=== PATIENT | female | born 1955 | race Caucasian/White ===

== ENCOUNTER 2017-06-25 14:17 | Observation (INO) ==
[2017-06-25] MEDS ORDERED: 0.9 % Sodium Chloride 1,000 ML IVC ONE ×2 (15:29→16:42)
[2017-06-25] MEDS ORDERED: Ondansetron 4 MG/2 ML VIAL IVP ONE (15:29)
--- NOTE | 2017-06-25 15:32 | Emergency Department Note ---
Disposition Clinical Impression: Hyperglycemia, Dehydration Urinary tract infection Qualifiers: Urinary tract infection type: site unspecified Hematuria presence: with hematuria Qualified Code(s): N39.0 - Urinary tract infection, site not specified ; R31.9 - Hematuria, unspecified; R31.9 - Hematuria, unspecified Disposition: Admitted As Inpatient Condition: Fair Referrals: Elizabeth Bray BAND SHOVER [Primary Care Provider] - Forms: ED Satisfaction Letter, Work/School Release General Adult HPI - General Chief complaint: ED General Medical Stated complaint: high blood sugar Time Seen by Provider: 06/25/17 15:14 Source: patient Mode of arrival: private vehicle Limitations: no limitations Nursing Notes Reviewed: Yes Vital Signs Reviewed: Yes - History of Present Illness HPI Narrative: 62-year-old female presents for evaluation of feeling ill. Patient states that over the last week her blood sugars have been running high and she has some mild throbbing of her head associated with nausea vomiting 3 and dizziness. She has also had associated urinary frequency. Patient normally controls her blood sugar with metformin and glyburide. She denies any chest pain but is felt like her heart has been fluttering. She states no shortness of breath. She denies abdominal pain. It has no rashes to her skin. Pain Scale: 4 - Related Data Home Medications Medication Instructions Recorded Confirmed Buspirone HCl [Buspar] 5 mg PO TID 12/20/16 06/25/17 DULoxetine [Cymbalta] 20 mg PO DAILY 12/20/16 06/25/17 HydrOXYzine Pamoate [Vistaril] 50 mg PO Q6H 12/20/16 06/25/17 glyBURIDE [GlyBURIDE] 2.5 mg PO 0800 12/20/16 06/25/17 metFORMIN [Glucophage] 500 mg PO BIDWM 12/20/16 06/25/17 traZODone [TraZODone] 50 mg PO BID 12/20/16 06/25/17 Previous Rx's Medication Instructions Recorded Meclizine HCl [Verticalm] 25 mg PO QID #12 tablet 12/20/16 Allergies Allergy/AdvReac Type Severity Reaction Status Date / Time acetaminophen Allergy See Verified 06/25/17 14:54 [From Jhon] Comments influenza virus vaccine, Allergy See Verified 06/25/17 14:54 specific Comments propoxyphene Allergy See Verified 06/25/17 14:54 [From HelenMalka] Comments Review of Systems: Constitutional: [Negative for fever and chills.] HENT: [Negative for congestion.] Eyes: [Negative for discharge.] Respiratory: [Negative for shortness of breath.] Cardiovascular: [Negative for chest pain.] Gastrointestinal: See history of present illness Endocrine: [Negative for excessive thirst,urination] Genitourinary: [Negative for dysuria and frequency.] Musculoskeletal: [Negative for myalgias and arthralgias.] Skin: [Negative for rash.] Neurological: See history of present illness Psychiatric/Behavioral: [Negative for nervous/anxious.] All other systems reviewed and are negative. Past Medical History - Past Medical History Attestation: Yes The following information was validated with the patient. Source: patient Medical history: Reports: diabetes, hypertension Psychiatric history: Reports: anxiety, depression, panic disorder - Social History Smoking Status: Never smoker Smokeless Tobacco Status: No Alcohol use: Reports: none Drug use: Reports: none Physical Exam Constitutional: Patient is [alert], [healthy,and comfortable] and cooperative. . The patient appears [asymptomatic], [nontoxic, and does not appear ill]. HENT: Head: Normocephalic and atraumatic. Right Ear: External ear normal. Left Ear: External ear normal. Nose: Nose normal. Mouth/Throat: Oropharynx is clear and mucous membranes show mild dehydration Eyes: Conjunctivae and EOM are normal. Pupils are equal, round, and reactive to light. Right eye exhibits [no] discharge. Left eye exhibits [no] discharge. Neck: Trachea is midline, normal range of motion and [phonation normal]. Neck supple. Cardiovascular: [Regular rhythm], S1 normal, S2 normal, normal heart sounds and intact distal pulses. Exam reveals no gallop and no friction rub. No murmur heard. [Capillary refill is brisk.] [Peripheral pulses are 2+] Pulmonary/Chest: Effort [normal] No stridor. [No] tachypnea. [No] respiratory distress. There are [no] decreased breath sounds. [There no wheezes, no rhonchi , or rales.] Abdominal: Soft. [Bowel sounds are normal]. There exhibits [no] distension and [no] mass. There is no hepatosplenomegaly. There is [no tenderness], [no] CVA tenderness. There is [no rigidity, no rebound, no guarding]. Musculoskeletal: Normal range of motion of uninvolved extremities. There exhibits [no edema]. [ ] Neurological: Patient is alert. Patient displays no atrophy and no tremor. No cranial nerve deficit and exhibits normal muscle tone. Coordination normal grossly. Skin: Skin is warm and dry. No erythema. No rash noted. Psychiatric: Patient has a normal mood and affect. Course Course Narrative: Patient was discussed with Dr. Root, hospitalist, who will accept admission. Vital Signs Temperature 97.2 F L 06/25/17 14:47 Pulse Rate 122 06/25/17 14:47 Respiratory Rate 16 06/25/17 14:47 Blood Pressure 131/63 06/25/17 14:47 O2 Sat by Pulse Oximetry 97 06/25/17 14:47 Temperature 97.2 F L 06/25/17 14:47 Pulse Rate 122 06/25/17 14:47 Respiratory Rate 16 06/25/17 14:47 Blood Pressure 131/63 06/25/17 14:47 O2 Sat by Pulse Oximetry 97 06/25/17 14:47 Oxygen Delivery Oxygen Delivery Room Air Medical Decision Making - Lab Data Lab results reviewed: Yes I reviewed the patient's lab results. Result diagrams: 06/25/17 15:50 06/25/17 15:50 Lab Results 06/25/17 06/25/17 06/25/17 Range/Units 14:57 15:35 15:50 WBC 16.7 H (4.3-11.1) K/mcL RBC 4.88 (3.82-4.97) M/mcL Hgb 14.0 (11.5-15.4) g/dL Hct 41.0 (35.3-44.9) % MCV 84.0 (83.0-100.0) fL MCH 28.7 (28.0-33.3) pg MCHC 34.1 (31.6-35.5) g/dL RDW 13.2 (11.5-14.5) % Plt Count 566 H (140-400) K/mcL MPV 8.9 L (9.4-12.4) fL Immature Gran % 0.4 (0-4) % Seg Neutrophils % 57.5 % Lymphocytes % 31.5 % Monocytes % 7.7 % Eosinophils % 1.6 % Basophils % 1.3 % Neutrophils # 9.6 H (1.6-8.9) K/mcL Lymphocytes # 5.3 H (0.6-4.6) K/mcL Monocytes # 1.3 (0.0-1.3) K/mcL Eosinophils # 0.3 (0.0-0.6) K/mcL Basophils # 0.2 (0.0-0.2) K/mcL ABG pH (7.32-7.45) pH Units ABG pCO2 (35-45) mmHg ABG pO2 (85-104) mmHg ABG HCO3 (21-27) mEq/L ABG Total CO2 (20-26) mEq/L ABG O2 Saturation (95-98) % ABG Base Excess (-2 to 3) mEq/L Sodium (136-145) mEq/L Potassium (3.5-5.1) mEq/L Chloride (98-107) mEq/L Carbon Dioxide (23-29) mEq/L BUN (8-23) mg/dL Creatinine (0.60-1.20) mg/dL Est GFR ( Amer) (> 60) Est GFR (Non-Af Amer) (> 60) BUN/Creatinine Ratio (6-26) Glucose (70-105) mg/dL POC Glucose 353 H (58-89) mg/dL Calculated Osmolality (280-300) Lactic Acid (0.5-2.2) mmol/L Calcium (8.6-10.3) mg/dL Total Bilirubin (0.3-1.0) mg/dL AST (13-39) Units/L ALT (7-52) Units/L Alkaline Phosphatase (34-104) Units/L Troponin I (< 0.04) ng/mL Serum Total Protein (6.4-8.9) g/dL Albumin (3.5-5.7) g/dL Globulin (2.4-3.5) g/dL Albumin/Globulin Ratio (1.1-2.2) Beta-Hydroxybutyric Acd (0.02-0.27) mmol/L Urine Color Yellow (Yellow) Urine Clarity Cloudy A (Clear) Urine pH 5.5 (5.0-8.0) pH Units Ur Specific [place] >= 1.030 H (1.010-1.025) Urine Protein >=300 H (Neg-Trace) mg/dL Urine Glucose (UA) 500 H (Normal) mg/dL Urine Ketones 15 H (Negative) mg/dL Urine Blood Trace-lysed H (Negative) Urine Nitrite Negative (Negative) Urine Bilirubin Small H (Negative) Urine Urobilinogen Normal (Normal) mg/dL Ur Leukocyte Esterase Small H (Negative) Urine Microscopic RBC 15-30 H (0-3) per hpf Urine Microscopic WBC TNTC H (0-3) per hpf Ur Squamous Epith Cells Many H (None-Few) per lpf Urine Bacteria Many H (None-Few) per hpf Ur Culture Indicated? NO. (NO) Person Notif of Crit 06/25/17 06/25/17 06/25/17 Range/Units 15:50 15:50 15:50 WBC (4.3-11.1) K/mcL RBC (3.82-4.97) M/mcL Hgb (11.5-15.4) g/dL Hct (35.3-44.9) % MCV (83.0-100.0) fL MCH (28.0-33.3) pg MCHC (31.6-35.5) g/dL RDW (11.5-14.5) % Plt Count (140-400) K/mcL MPV (9.4-12.4) fL Immature Gran % (0-4) % Seg Neutrophils % % Lymphocytes % % Monocytes % % Eosinophils % % Basophils % % Neutrophils # (1.6-8.9) K/mcL Lymphocytes # (0.6-4.6) K/mcL Monocytes # (0.0-1.3) K/mcL Eosinophils # (0.0-0.6) K/mcL Basophils # (0.0-0.2) K/mcL ABG pH (7.32-7.45) pH Units ABG pCO2 (35-45) mmHg ABG pO2 (85-104) mmHg ABG HCO3 (21-27) mEq/L ABG Total CO2 (20-26) mEq/L ABG O2 Saturation (95-98) % ABG Base Excess (-2 to 3) mEq/L Sodium 129 L (136-145) mEq/L Potassium 4.4 (3.5-5.1) mEq/L Chloride 98 (98-107) mEq/L Carbon Dioxide 21 L (23-29) mEq/L BUN 23 (8-23) mg/dL Creatinine 0.98 (0.60-1.20) mg/dL Est GFR ( Amer) > 60 (> 60) Est GFR (Non-Af Amer) 57 L (> 60) BUN/Creatinine Ratio 23 (6-26) Glucose 384 H (70-105) mg/dL POC Glucose (58-89) mg/dL Calculated Osmolality 288 (280-300) Lactic Acid 3.2 H (0.5-2.2) mmol/L Calcium 9.8 (8.6-10.3) mg/dL Total Bilirubin 0.3 (0.3-1.0) mg/dL AST 11 L (13-39) Units/L ALT 11 (7-52) Units/L Alkaline Phosphatase 84 (34-104) Units/L Troponin I < 0.03 (< 0.04) ng/mL Serum Total Protein 6.7 (6.4-8.9) g/dL Albumin 3.4 L (3.5-5.7) g/dL Globulin 3.3 (2.4-3.5) g/dL Albumin/Globulin Ratio 1.0 L (1.1-2.2) Beta-Hydroxybutyric Acd (0.02-0.27) mmol/L Urine Color (Yellow) Urine Clarity (Clear) Urine pH (5.0-8.0) pH Units Ur Specific [place] (1.010-1.025) Urine Protein (Neg-Trace) mg/dL Urine Glucose (UA) (Normal) mg/dL Urine Ketones (Negative) mg/dL Urine Blood (Negative) Urine Nitrite (Negative) Urine Bilirubin (Negative) Urine Urobilinogen (Normal) mg/dL Ur Leukocyte Esterase (Negative) Urine Microscopic RBC (0-3) per hpf Urine Microscopic WBC (0-3) per hpf Ur Squamous Epith Cells (None-Few) per lpf Urine Bacteria (None-Few) per hpf Ur Culture Indicated? (NO) Person Notif of Crit 06/25/17 06/25/17 Range/Units 15:50 17:21 WBC (4.3-11.1) K/mcL RBC (3.82-4.97) M/mcL Hgb (11.5-15.4) g/dL Hct (35.3-44.9) % MCV (83.0-100.0) fL MCH (28.0-33.3) pg MCHC (31.6-35.5) g/dL RDW (11.5-14.5) % Plt Count (140-400) K/mcL MPV (9.4-12.4) fL Immature Gran % (0-4) % Seg Neutrophils % % Lymphocytes % % Monocytes % % Eosinophils % % Basophils % % Neutrophils # (1.6-8.9) K/mcL Lymphocytes # (0.6-4.6) K/mcL Monocytes # (0.0-1.3) K/mcL Eosinophils # (0.0-0.6) K/mcL Basophils # (0.0-0.2) K/mcL ABG pH 7.33 (7.32-7.45) pH Units ABG pCO2 44 (35-45) mmHg ABG pO2 28 L* (85-104) mmHg ABG HCO3 23 (21-27) mEq/L ABG Total CO2 25 (20-26) mEq/L ABG O2 Saturation 47 L (95-98) % ABG Base Excess -3 L (-2 to 3) mEq/L Sodium (136-145) mEq/L Potassium (3.5-5.1) mEq/L Chloride (98-107) mEq/L Carbon Dioxide (23-29) mEq/L BUN (8-23) mg/dL Creatinine (0.60-1.20) mg/dL Est GFR ( Amer) (> 60) Est GFR (Non-Af Amer) (> 60) BUN/Creatinine Ratio (6-26) Glucose (70-105) mg/dL POC Glucose (58-89) mg/dL Calculated Osmolality (280-300) Lactic Acid (0.5-2.2) mmol/L Calcium (8.6-10.3) mg/dL Total Bilirubin (0.3-1.0) mg/dL AST (13-39) Units/L ALT (7-52) Units/L Alkaline Phosphatase (34-104) Units/L Troponin I (< 0.04) ng/mL Serum Total Protein (6.4-8.9) g/dL Albumin (3.5-5.7) g/dL Globulin (2.4-3.5) g/dL Albumin/Globulin Ratio (1.1-2.2) Beta-Hydroxybutyric Acd 0.20 (0.02-0.27) mmol/L Urine Color (Yellow) Urine Clarity (Clear) Urine pH (5.0-8.0) pH Units Ur Specific [place] (1.010-1.025) Urine Protein (Neg-Trace) mg/dL Urine Glucose (UA) (Normal) mg/dL Urine Ketones (Negative) mg/dL Urine Blood (Negative) Urine Nitrite (Negative) Urine Bilirubin (Negative) Urine Urobilinogen (Normal) mg/dL Ur Leukocyte Esterase (Negative) Urine Microscopic RBC (0-3) per hpf Urine Microscopic WBC (0-3) per hpf Ur Squamous Epith Cells (None-Few) per lpf Urine Bacteria (None-Few) per hpf Ur Culture Indicated? (NO) Person Notif of Crit thomas herrera - Radiology Data Radiology results reviewed: Yes I reviewed the patient's radiology results. XR/XR chest 2V IMPRESSION: 1. 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 2. Calcific atherosclerotic disease aorta. 3. Otherwise unremarkable chest. - EKG Data EKG #1 EKG attestation: Yes I reviewed and interpreted this EKG. EKG shows normal: sinus rhythm, axis, intervals, QRS complexes, ST-T waves Rate: tachycardia Interpretation: no acute changes
[2017-06-25 16:02] LABS: Basophils # 0.2 K/mcL (0.0-0.2); Basophils % 1.3 %; Eosinophils # 0.3 K/mcL (0.0-0.6); Eosinophils % 1.6 %; Immature Granulocytes % 0.4 % (0-4); Lymphocytes % 31.5 %; Mean Corpuscular HGB Conc 34.1 g/dL (31.6-35.5); Mean Corpuscular Hemoglobin 28.7 pg (28.0-33.3); Mean Platelet Volume 8.9 fL (9.4-12.4); Monocytes # 1.3 K/mcL (0.0-1.3); Monocytes % 7.7 %; Neutrophils # 9.6 K/mcL (1.6-8.9); Platelet Count 566 K/mcL (140-400); Red Blood Count 4.88 M/mcL (3.82-4.97); Red Cell Distribution Width 13.2 % (11.5-14.5); Segmented Neutrophils % 57.5 %
[2017-06-25 16:04] LABS: Bilirubin,Urine Small (Negative); Blood,Urine Trace-lysed (Negative); Clarity,Urine Cloudy (Clear); Color,Urine Yellow (Yellow); Glucose,Urine (UA) 500 mg/dL (Normal); Ketones,Urine 15 mg/dL (Negative); Leukocyte Esterase,Urine Small (Negative); Nitrite,Urine Negative (Negative); PH,Urine 5.5 pH Units (5.0-8.0); Protein,Urine >=300 mg/dL (Neg-Trace); Specific Gravity,Urine >= 1.030 (1.010-1.025); Urobilinogen,Urine Normal (Normal)
[2017-06-25 16:04] LABS: Lymphocytes # 5.3 K/mcL (0.6-4.6)
[2017-06-25 16:21] LABS: Alanine Aminotransferase 11 Units/L (7-52); Albumin 3.4 g/dL (3.5-5.7); Alkaline Phosphatase 84 Units/L (34-104); Aspartate Amino Transferase 11 Units/L (13-39); BUN/Creatinine Ratio 23 (6-26); Bilirubin,Total 0.3 mg/dL (0.3-1.0); Blood Urea Nitrogen 23 mg/dL (8-23); Calcium 9.8 mg/dL (8.6-10.3); Carbon Dioxide 21 mEq/L (23-29); Chloride 98 mEq/L (98-107); Globulin 3.3 g/dL (2.4-3.5); Glucose 384 mg/dL (70-105); Osmolality,Calculated 288 (280-300); Potassium 4.4 mEq/L (3.5-5.1); Sodium 129 mEq/L (136-145); Total Protein 6.7 g/dL (6.4-8.9); eGFR For African Americans > 60 (> 60); eGFR For Non-African Americans 57 (> 60)
[2017-06-25] MEDS ORDERED: Insulin Regular, Human 100 UNIT/ML SQ ONE (16:42)
[2017-06-25] MEDS ORDERED: Insulin Regular, Human 100 UNIT/ML IV ONE ×2 (16:42→17:41)
[2017-06-25 16:49] LABS: RBC,Urine 15-30 per hpf (0-3)
[2017-06-25 16:50] LABS: Bacteria,Urine Many per hpf (None-Few); Squamous Epithelial Cell,Urine Many per lpf (None-Few); WBC,Urine TNTC per hpf (0-3)
[2017-06-25 17:30] LABS: ABG Base Excess -3 mEq/L (-2 to 3); ABG HCO3 23 mEq/L (21-27); ABG Oxygen Saturation 47 % (95-98); ABG PCO2 44 mmHg (35-45); ABG PH 7.33 pH Units (7.32-7.45); ABG PO2 28 mmHg (85-104); ABG TCO2 25 mEq/L (20-26)
[2017-06-25] MEDS: 0.9 % Sodium Chloride 1,000 ML IVC SCH (20:45)
[2017-06-25] MEDS: traZODone 50 MG TABLET PO SCH (20:46)
[2017-06-25] MEDS: hydrOXYzine pamoate 25 MG CAPSULE PO SCH ×2 (20:46→23:46)
--- NOTE | 2017-06-25 21:18 | Internal Med History&Physical ---
Date of Encounter: 06/25/17 Time of Encounter: 21:14 Assessment and Plan (1) Urinary tract infection Current visit: Yes Status: Acute We will treat empirically with antibiotics. The initial urinary sample was felt to be possibly contaminated so we will obtain a straight catheter urinalysis for UA and culture. Patient will be re hydrated overnight. She will be empirically treated with ceftriaxone IV. Qualifiers: Urinary tract infection type: site unspecified Hematuria presence: with hematuria Qualified Code(s): N39.0 - Urinary tract infection, site not specified; R31.9 - Hematuria, unspecified; R31.9 - Hematuria, unspecified (2) Dehydration Current visit: Yes Status: Acute We will rehydrate and follow clinically and with labs. (3) Generalized anxiety disorder Current visit: Yes Status: Acute Clinically stable. We will continue home regimen and follow. (4) Leukocytosis Current visit: Yes Status: Acute Apparently, this is chronic so we will follow. Qualifiers: Qualified Code(s): D72.829 - Elevated white blood cell count, unspecified (5) Diabetes mellitus Current visit: Yes Status: Acute Qualifiers: Diabetes mellitus type: type 2 Diabetes mellitus long term care pharmacist insulin use: without chcf use Diabetes mellitus complication status: with unspecified complications Qualified Code(s): E11.8 - Type 2 diabetes mellitus with unspecified complications Internal Medicine - H&P: HPI Admitted From: Home Plans for Post Hospital Care: Home History of present illness: Ms. Dinh is a 62 year old female who presents with elevated blood sugars over the last week, often into the 300s. She has associated headache, frequently and there is also nausea with vomiting 3. She has had significant dizziness. Patient takes metformin and glyburide for blood sugar. She she notes an increase in urinary frequency. She denies dysuria, hematuria, fevers chills or sweats, dyspnea, abdominal pain, etc. She has a history of elevated white count for quite some time and has been referred to a cloth folder hand but has not yet made an appointment for that visit, even though she was referred a year ago. Patient has no complaint of chest discomfort, dyspnea, orthopnea, palpitations, nausea or vomiting, constipation or diarrhea, other changes in bowel habits, difficulty with urination, rash or itching, or other new complaints, except as mentioned above. Review of systems is otherwise unremarkable. Past Med Surg Social Fam HX - Past Medical History Source: patient Medical history: diabetes, hypertension Psychiatric history: anxiety, depression, panic disorder - Social History Smoking Status: Never smoker Smokeless Tobacco Status: No Alcohol use: none Drug use: none Internal Medicine - H&P: Meds Buspirone HCl [Buspar] 5 mg PO TID 12/20/16 [History] DULoxetine [Cymbalta] 20 mg PO DAILY 12/20/16 [History] HydrOXYzine Pamoate [Vistaril] 50 mg PO Q6H 12/20/16 [History] Meclizine HCl [Verticalm] 25 mg PO QID #12 tablet 12/20/16 [Rx] glyBURIDE [GlyBURIDE] 2.5 mg PO 0800 12/20/16 [History] metFORMIN [Glucophage] 500 mg PO BIDWM 12/20/16 [History] traZODone [TraZODone] 50 mg PO BID 12/20/16 [History] 3 Allergy/AdvReac Type Severity Reaction Status Date / Time acetaminophen Allergy See Verified 06/25/17 14:54 [From Chitot-N] Comments codeine Allergy Itching Verified 06/25/17 21:05 influenza virus vaccine, Allergy See Verified 06/25/17 14:54 specific Comments propoxyphene Allergy See Verified 06/25/17 14:54 [From Jose Dcet-N] Comments All Systems PM: Patient has no complaint of chest discomfort, dyspnea, orthopnea, palpitations, nausea or vomiting, constipation or diarrhea, other changes in bowel habits, difficulty with urination, rash or itching, or other new complaints, except as mentioned above. Review of systems is otherwise unremarkable. A 10-system review of systems was performed and is negative for pertinent findings except as documented above in the HPI. - Constitutional Vitals: Temp Pulse Resp BP Pulse Ox 98.2 F 105 18 169/84 95 06/25/17 19:13 06/25/17 19:13 06/25/17 19:13 06/25/17 19:13 06/25/17 19:13 Exam: Examination: (Except as mentioned above): General: In no apparent distress, alert and oriented 3. Head: Atraumatic and normocephalic. Eyes: Extraocular muscles are intact, pupils equal round and reactive to light and accommodation. Sclerae anicteric. Ears: External ears are normal to inspection and hearing is grossly normal. Nose: Patent without lesion noted. Mouth: No intraoral lesions seen. Dentition is remarkable for multiple caries. Neck: Supple with trachea midline. There is no thyromegaly or adenopathy and carotids are 2+ without bruit heard. Respiratory: No use of accessory muscles. Lungs are clear throughout. Normal airflow. Cardiovascular: Regular rhythm with tachycardia without murmur appreciated. Abdomen: Bowel sounds are normal. No hepatosplenomegaly masses or tenderness. Obese and therefore difficult to palpate deeply. Extremities: No cyanosis clubbing or edema. Neurological: A and O 3. Cranial nerves II through XII are intact. No focal deficits and no abnormal movements or postures. Skin: Warm and non-diaphoretic with no lesions noted. Breasts, pelvic and rectal: Not examined. Internal Med - H&P Results - Labs CBC & Chem 7: 06/25/17 15:50 06/25/17 15:50
[2017-06-26 01:59] LABS: Bilirubin,Urine Negative (Negative); Blood,Urine Trace-intact (Negative); Clarity,Urine Clear (Clear); Color,Urine Yellow (Yellow); Glucose,Urine (UA) Normal (Normal); Ketones,Urine Negative (Negative); Leukocyte Esterase,Urine Trace (Negative); Nitrite,Urine Negative (Negative); Protein,Urine Negative (Neg-Trace); Specific Gravity,Urine <= 1.005 (1.010-1.025); Urobilinogen,Urine Normal (Normal)
[2017-06-26 02:31] LABS: WBC,Urine 0-3 per hpf (0-3)
[2017-06-26] MEDS: 0.9 % Sodium Chloride 1,000 ML IVC SCH (03:24)
[2017-06-26] MEDS: hydrOXYzine pamoate 25 MG CAPSULE PO SCH ×2 (05:42→12:59)
[2017-06-26 06:02] LABS: Basophils # 0.2 K/mcL (0.0-0.2); Basophils % 1.2 %; Eosinophils # 0.4 K/mcL (0.0-0.6); Eosinophils % 2.8 %; Hematocrit 36.8 % (35.3-44.9); Hemoglobin 12.3 g/dL (11.5-15.4); Immature Granulocytes % 0.4 % (0-4); Lymphocytes # 5.8 K/mcL (0.6-4.6); Lymphocytes % 37.3 %; Mean Corpuscular HGB Conc 33.4 g/dL (31.6-35.5); Mean Corpuscular Hemoglobin 28.3 pg (28.0-33.3); Mean Corpuscular Volume 84.8 fL (83.0-100.0); Mean Platelet Volume 8.9 fL (9.4-12.4); Monocytes # 1.6 K/mcL (0.0-1.3); Monocytes % 10.4 %; Neutrophils # 7.5 K/mcL (1.6-8.9); Platelet Count 528 K/mcL (140-400); Red Blood Count 4.34 M/mcL (3.82-4.97); Red Cell Distribution Width 13.3 % (11.5-14.5); Segmented Neutrophils % 47.9 %
[2017-06-26 06:19] LABS: BUN/Creatinine Ratio 13 (6-26); Blood Urea Nitrogen 12 mg/dL (8-23); Calcium 9.3 mg/dL (8.6-10.3); Carbon Dioxide 26 mEq/L (23-29); Chloride 104 mEq/L (98-107); Glucose 157 mg/dL (70-105); Osmolality,Calculated 287 (280-300); Potassium 4.4 mEq/L (3.5-5.1); Sodium 137 mEq/L (136-145); eGFR For African Americans > 60 (> 60); eGFR For Non-African Americans > 60 (> 60)
[2017-06-26] MEDS ORDERED: *HR* Enoxaparin 30 MG/0.3 ML SYRINGE SQ SCH (07:00)
[2017-06-26] MEDS ORDERED: *HR* GlyBURIDE 2.5 MG TABLET PO SCH (08:00)
[2017-06-26] MEDS ORDERED: *HR* Metformin 500 MG TABLET PO SCH (08:00)
[2017-06-26] MEDS: traZODone 50 MG TABLET PO SCH (08:21)
--- NOTE | 2017-06-26 14:16 | Internal Med Progress Note ---
Date of Encounter: 06/26/17 Time of Encounter: 14:16 - Assessment and plan (1) Urinary tract infection Current Visit: Yes Status: Acute Assessment and plan: Improving. We will make sure she has her third dose of IV ceftriaxone and begin her on oral cephalosporin (Keflex) and discharge to early follow-up. She already has a primary care appointment with her nurse practitioner on 2017.) Qualifiers: Urinary tract infection type: site unspecified Hematuria presence: with hematuria Qualified Code(s): N39.0 - Urinary tract infection, site not specified; R31.9 - Hematuria, unspecified; R31.9 - Hematuria, unspecified (2) Dehydration Current Visit: Yes Status: Acute Assessment and plan: Improved. (3) Generalized anxiety disorder Current Visit: Yes Status: Acute Assessment and plan: Stable. (4) Leukocytosis Current Visit: Yes Status: Acute Assessment and plan: Slightly improved. Qualifiers: Qualified Code(s): D72.829 - Elevated white blood cell count, unspecified (5) Diabetes mellitus Current Visit: Yes Status: Acute Assessment and plan: Clinically improved. Qualifiers: Diabetes mellitus type: type 2 Diabetes mellitus fpc insulin use: without fpc use Diabetes mellitus complication status: with unspecified complications Qualified Code(s): E11.8 - Type 2 diabetes mellitus with unspecified complications - Time Spent With Patient 25 - 35 minutes - Subjective Interval history: Patient is feeling much better. She denies flank pain, abdominal pain, nausea or vomiting, no diarrhea. Patient has no complaint of chest discomfort, dyspnea, orthopnea, palpitations, nausea or vomiting, constipation or diarrhea, other changes in bowel habits, difficulty with urination, rash or itching, or other new complaints, except as mentioned above. Review of systems is otherwise unremarkable. - Constitutional Vitals: Temp Pulse Resp BP Pulse Ox 98.8 F 84 16 167/81 97 06/26/17 10:44 06/26/17 10:44 06/26/17 10:44 06/26/17 10:44 06/26/17 10:44 Exam: Examination: (Except as mentioned above): General: In no apparent distress. Alert and oriented 3. Nondiaphoretic. Head: Atraumatic and normocephalic. Respiratory: No use of accessory muscles. Lungs are clear throughout. Normal airflow. Cardiovascular: Regular rate and rhythm without murmur appreciated. Abdomen: Bowel sounds are normal. No hepatosplenomegaly mass or tenderness appreciated. Obese and therefore difficult to palpate deeply. Extremities: No cyanosis clubbing or edema. Skin: Warm and non-diaphoretic with no new lesions noted. Internal Medicine: Result - Labs CBC & Chem 7: 06/26/17 05:58 06/26/17 05:58 Labs: Short CBC 06/26/17 Range/Units 05:58 WBC 15.6 H (4.3-11.1) K/mcL Hgb 12.3 D (11.5-15.4) g/dL Hct 36.8 (35.3-44.9) % Plt Count 528 H (140-400) K/mcL Neutrophils # 7.5 (1.6-8.9) K/mcL BMP 06/26/17 05:58 Sodium 137 Potassium 4.4 Chloride 104 Carbon Dioxide 26 BUN 12 Creatinine 0.89 Glucose 157 H Calcium 9.3 - ABG Interpretation ABG results: ABG ABG pH 7.33 pH Units (7.32-7.45) 06/25/17 17:21 ABG pCO2 44 mmHg (35-45) 06/25/17 17:21 ABG pO2 28 mmHg (85-104) L* 06/25/17 17:21 ABG O2 Saturation 47 % (95-98) L 06/25/17 17:21 Consult Discharge Plan - Plan Instructions: Urinary Tract Infection in Women (DC) Referrals: Eliazbeth Bray CNP [Primary Care Provider] - 06/28/17 4:00 pm
[2017-06-26 16:00] VITALS: BP 150/90
--- NOTE | 2017-06-26 16:33 | Discharge Summary ---
Orders not resulted at time of discharge: Pending orders 06/25/17 01:53 Culture,Urine [RM] Routine We are awaiting sensitivities which will be called to the patient, tomorrow. Date of Encounter: 06/26/17 Time of Encounter: 16:30 - Discharge Diagnosis (1) Urinary tract infection Priority: Primary Status: Acute Qualifiers: Urinary tract infection type: site unspecified Hematuria presence: with hematuria Qualified Code(s): N39.0 - Urinary tract infection, site not specified; R31.9 - Hematuria, unspecified; R31.9 - Hematuria, unspecified (2) Dehydration Priority: Secondary Status: Acute (3) Generalized anxiety disorder Priority: Secondary Status: Acute (4) Leukocytosis Priority: Secondary Status: Acute Qualifiers: Qualified Code(s): D72.829 - Elevated white blood cell count, unspecified (5) Diabetes mellitus Priority: Secondary Status: Acute Qualifiers: Diabetes mellitus type: type 2 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 Dinh is a 62 year old female who presented with nausea vomiting and minimal diarrhea. She really had no urinary symptoms but was found to have a UTI, by urinalysis. She had leukocytosis, as well. She was felt to be dehydrated and received IV fluids, IV antibiotics, and improved. She was treated with ceftriaxone, receiving 3 doses. She is going to be converted to oral cephalexin and is to follow-up in 2 days with her primary care provider. Culture ID and sensitivity are pending at the time of discharge. - Time Spent with Patient Total time spent providing and/or coordinating discharge services: - Discharge Medications Home Medications: Buspirone HCl [Buspar] 15 mg PO BID 12/20/16 [History] DULoxetine [Cymbalta] 40 mg PO DAILY 12/20/16 [History] HydrOXYzine Pamoate [Vistaril] 50 mg PO BID 12/20/16 [History] Meclizine HCl [Verticalm] 25 mg PO QID #12 tablet 12/20/16 [Rx] glyBURIDE [GlyBURIDE] 2.5 mg PO 0800 12/20/16 [History] metFORMIN [Glucophage] 1,000 mg PO BIDWM 12/20/16 [History] traZODone [TraZODone] 50 mg PO HS 12/20/16 [History] Allergies/Adverse Reactions: 3 Allergy/AdvReac Type Severity Reaction Status Date / Time acetaminophen Allergy See Verified 06/25/17 14:54 [From Darvocet-N] Comments codeine Allergy Itching Verified 06/25/17 21:05 influenza virus vaccine, Allergy See Verified 06/25/17 14:54 specific Comments propoxyphene Allergy See Verified 06/25/17 14:54 [From Darvocet-N] Comments Date of admission: 06/25/17 17:47 Primary care physician: Isaac Venegas Discharging clinician: Robert Root Anticipated date of discharge: 06/26/17 - Constitutional Vitals: Temp Pulse Resp BP Pulse Ox 98.6 F 75 16 150/90 98 06/26/17 15:59 06/26/17 15:59 06/26/17 15:59 06/26/17 15:59 06/26/17 15:59 Exam: See exam in progress note of this date. - Patient Status Disposition: Home, Self-Care Condition: Fair - Discharge Instructions Instructions: Urinary Tract Infection in Women (DC) Follow Up With: Elizabeth Bray CNP [Primary Care Provider] - 06/28/17 4:00 pm
[2017-06-27] MEDS ORDERED: *HR* Enoxaparin 40 MG/0.4 ML SYRINGE SQ SCH (07:00)
--- NOTE | 2017-06-28 12:21 | Electrocardiograph Report ---
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
== END 2017-06-26 17:15 | disposition home or self-care (01) ==
LOC: EMEROOGRE 14:17 → INPGRE 14:17